=== PATIENT | male | born 1950 | race Caucasian/White ===

== ENCOUNTER 2018-10-15 | Inpatient (IN) | payer MEDICARE, OTHER ==
[~2018-10-15] VITALS: Ht 182.9 cm; Wt 103.4 kg
[2018-10-15 01:41] LABS: *BILIRUBIN,URIN NEGATIVE (NEGATIVE); *CLARITY,URINE CLOUDY (CLEAR); *COLOR,URINE YELLOW (YELLOW); *KETONES,URINE NEGATIVE (NEGATIVE); *UROBILINOGEN,URINE 0.2 E.U./dl (NORMAL); LEUKOCYTE ESTERASE ,URINE 1+ (NEGATIVE); NITRITE, URINE NEGATIVE (NEGATIVE); UGLUCOSE 2+ (NEGATIVE)
[2018-10-15 01:44] LABS: *BLOOD, URINE TRACE (NEGATIVE)
[2018-10-15 01:48] LABS: BACTERIA,URINE FEW /HPF (NONE SEEN); SQUAMOUS EPITHELIAL CELL,UR FEW /HPF (NONE SEEN); WBC,URINE 50-80 /HPF (0-3)
[2018-10-15] MEDS ORDERED: CEphaleXIN 500 MG CAPSULE PO ONE (02:15)
[2018-10-15] MEDS ORDERED: ASPI81TA31 PO (02:17)
[2018-10-15] MEDS ORDERED: LISI-607 PO (02:17)
[2018-10-15] MEDS ORDERED: EZET10TA13 PO (02:17)
[2018-10-15] MEDS ORDERED: LEVO100T10 PO (02:17)
[2018-10-15] MEDS ORDERED: SENN-18 PO (02:17)
[2018-10-15] MEDS ORDERED: OLAN10TA23 PO (02:17)
[2018-10-15] MEDS ORDERED: SERT100T PO (02:17)
[2018-10-15] MEDS ORDERED: CHOL10002 PO (02:17)
[2018-10-15] MEDS ORDERED: FERR240T9 PO (02:17)
[2018-10-15] MEDS ORDERED: METF-440 PO (02:17)
[2018-10-15] MEDS ORDERED: PIOG30TA10 PO (02:17)
[2018-10-15] MEDS ORDERED: RANI150T43 PO (02:17)
[2018-10-15] MEDS ORDERED: LORA10TA7 PO (02:17)
[2018-10-15] MEDS ORDERED: ARIP30TA3 PO (02:17)
[2018-10-15] MEDS ORDERED: CEphaleXIN 500 MG CAPSULE ONE (02:25)
[2018-10-15] MEDS ORDERED: MAG HYDROX/AL HYDROX/SIMETH 30 ML LIQUID UDC PO PRN (03:15)
[2018-10-15] MEDS ORDERED: MAGNESIUM HYDROXIDE 30 ML LIQUID UDC PO PRN (03:15)
[2018-10-15] MEDS ORDERED: TEMAZEPAM 7.5 MG CAPSULE PO PRN (03:15)
[2018-10-15] MEDS ORDERED: ACETAMINOPHEN 325 MG TABLET PO PRN (03:15)
[2018-10-15 03:20] VITALS: BP 136/83
[2018-10-15 07:30] VITALS: BP 127/59
[2018-10-15] MEDS: ARIPIPRAZOLE 10 MG TABLET PO SCH (09:44)
[2018-10-15] MEDS: SERTRALINE HCL 100 MG TABLET PO SCH (09:44)
[2018-10-15] MEDS: BLOOD SUGAR DIAGNOSTIC 1 EACH STRIP VI SCH ×3 (12:15→21:16)
[2018-10-15] MEDS ORDERED: DEXTROSE 50% 50 ML DISP.SYRIN IV PRN (12:15)
[2018-10-15] MEDS: LORATADINE 10 MG TABLET PO SCH (13:43)
[2018-10-15] MEDS: PIOGLITAZONE HCL 30 MG TABLET PO SCH (13:44)
[2018-10-15] MEDS: CHOLECALCIFEROL 1,000 UNIT TABLET PO SCH (13:44)
[2018-10-15] MEDS: LISINOPRIL 5 MG TABLET PO SCH (13:44)
[2018-10-15] MEDS: EZETIMIBE 10 MG TABLET PO SCH (13:45)
[2018-10-15] MEDS: LEVOTHYROXINE SODIUM 100 MCG TABLET PO SCH (13:45)
[2018-10-15] MEDS: FERROUS GLUCONATE 324 MG TABLET PO SCH (13:46)
[2018-10-15] MEDS: ASPIRIN 81 MG TAB.CHEW PO SCH (13:47)
[2018-10-15] MEDS: METFORMIN HCL 500 MG TABLET PO SCH ×2 (13:48→17:06)
[2018-10-15 16:11] VITALS: BP 137/75
[2018-10-15] MEDS: INSULIN REGULAR, HUMAN 300 UNIT/3 ML VIAL SQ PRN ×2 (17:03→21:51)
[2018-10-15] MEDS: SENNOSIDES 1 TABLET PO SCH (17:06)
[2018-10-15] MEDS: OLANZAPINE 5 MG TABLET PO SCH (21:15)
[2018-10-15 21:43] VITALS: BP 110/56
[2018-10-15] MEDS: CEphaleXIN 250 MG CAPSULE PO SCH (21:49)
[2018-10-16] MEDS: LEVOTHYROXINE SODIUM 100 MCG TABLET PO SCH (06:40)
[2018-10-16] MEDS: BLOOD SUGAR DIAGNOSTIC 1 EACH STRIP VI SCH ×4 (06:48→20:14)
[2018-10-16 07:17] LABS: BASOPHILS % (AUTO) 0.8 % (0.0-2.0); EOSINOPHILS # (AUTO) 0.3 K/uL (0.0-0.7); EOSINOPHILS % (AUTO) 4.9 % (0.0-7.0); HEMATOCRIT 37.9 % (36.7-47.1); HEMOGLOBIN 12.7 g/dL (12.5-16.3); LYMPHOCYTES # (AUTO) 1.3 K/uL (20.0-40.0); LYMPHOCYTES % (AUTO) 24.4 % (20.5-51.5); MEAN CORPUSCULAR HEMOGLOBIN 29.8 uug (23.8-33.4); MEAN CORPUSCULAR HGB CONC 34 g/dL (32.5-36.3); MEAN CORPUSCULAR VOLUME 89.2 fL (73.0-96.2); MONOCYTES # (AUTO) 0.4 K/uL (2.0-10.0); MONOCYTES % (AUTO) 7.3 % (0.0-11.0); NEUTROPHILS # (AUTO) 3.3 K/uL (1.8-8.9); NEUTROPHILS % (AUTO) 62.6 % (38.5-71.5); PLATELET COUNT (AUTO) 198 K/uL (152-348); RED BLOOD CELL COUNT(AUTO) 4.25 MIL/uL (4.06-5.63); WHITE BLOOD COUNT (AUTO) 5.2 K/uL (3.6-10.2)
[2018-10-16 07:30] VITALS: BP 100/56
[2018-10-16 07:34] LABS: CREATININE 1.3 mg/dL (0.6-1.3); MAGNESIUM 1.4 mg/dL (1.8-2.4); PHOSPHOROUS 4.4 mg/dL (2.5-4.9); POTASSIUM 4.2 mmol/L (3.5-5.1)
[2018-10-16] MEDS: METFORMIN HCL 500 MG TABLET PO SCH ×2 (08:23→17:04)
[2018-10-16] MEDS: SENNOSIDES 1 TABLET PO SCH ×2 (08:24→17:04)
[2018-10-16] MEDS: CHOLECALCIFEROL 1,000 UNIT TABLET PO SCH (08:24)
[2018-10-16] MEDS: LORATADINE 10 MG TABLET PO SCH (08:25)
[2018-10-16] MEDS: FERROUS GLUCONATE 324 MG TABLET PO SCH (08:25)
[2018-10-16] MEDS: EZETIMIBE 10 MG TABLET PO SCH (08:25)
[2018-10-16] MEDS: ASPIRIN 81 MG TAB.CHEW PO SCH (08:25)
[2018-10-16] MEDS: ARIPIPRAZOLE 10 MG TABLET PO SCH (08:25)
[2018-10-16] MEDS: PIOGLITAZONE HCL 30 MG TABLET PO SCH (08:26)
[2018-10-16] MEDS: SERTRALINE HCL 100 MG TABLET PO SCH (08:26)
[2018-10-16] MEDS: LISINOPRIL 5 MG TABLET PO SCH (08:27)
[2018-10-16] MEDS: CEphaleXIN 250 MG CAPSULE PO SCH ×2 (08:48→20:14)
[2018-10-16] MEDS ORDERED: MAGNESIUM OXIDE 400 MG TABLET PO ONE (09:30)
[2018-10-16] MEDS: INSULIN REGULAR, HUMAN 300 UNIT/3 ML VIAL SQ PRN ×2 (11:46→16:33)
[2018-10-16 16:17] VITALS: BP 135/75
[2018-10-16] MEDS: OLANZAPINE 5 MG TABLET PO SCH (20:14)
[2018-10-16 20:51] VITALS: BP 127/71
[2018-10-17] MEDS: BLOOD SUGAR DIAGNOSTIC 1 EACH STRIP VI SCH ×4 (06:35→20:24)
[2018-10-17] MEDS: LEVOTHYROXINE SODIUM 100 MCG TABLET PO SCH (06:35)
[2018-10-17 07:30] VITALS: BP 121/69
[2018-10-17] MEDS: METFORMIN HCL 500 MG TABLET PO SCH ×2 (07:52→17:11)
[2018-10-17] MEDS: CEphaleXIN 250 MG CAPSULE PO SCH ×2 (08:12→20:08)
[2018-10-17] MEDS: ASPIRIN 81 MG TAB.CHEW PO SCH (08:13)
[2018-10-17] MEDS: CHOLECALCIFEROL 1,000 UNIT TABLET PO SCH (08:13)
[2018-10-17] MEDS: SENNOSIDES 1 TABLET PO SCH ×2 (08:13→17:11)
[2018-10-17] MEDS: LORATADINE 10 MG TABLET PO SCH (08:13)
[2018-10-17] MEDS: ARIPIPRAZOLE 10 MG TABLET PO SCH (08:13)
[2018-10-17] MEDS: SERTRALINE HCL 100 MG TABLET PO SCH (08:14)
[2018-10-17] MEDS: PIOGLITAZONE HCL 30 MG TABLET PO SCH (08:15)
[2018-10-17] MEDS: FERROUS GLUCONATE 324 MG TABLET PO SCH (08:15)
[2018-10-17] MEDS: EZETIMIBE 10 MG TABLET PO SCH (08:15)
[2018-10-17] MEDS: LISINOPRIL 5 MG TABLET PO SCH (08:16)
[2018-10-17] MEDS: INSULIN REGULAR, HUMAN 300 UNIT/3 ML VIAL SQ PRN ×3 (11:17→20:48)
[2018-10-17 15:13] VITALS: BP 136/60
[2018-10-17] MEDS: OLANZAPINE 5 MG TABLET PO SCH (20:08)
[2018-10-17 20:48] VITALS: BP 141/64
[2018-10-18] MEDS: LEVOTHYROXINE SODIUM 100 MCG TABLET PO SCH (06:32)
[2018-10-18] MEDS: BLOOD SUGAR DIAGNOSTIC 1 EACH STRIP VI SCH ×4 (06:33→20:24)
[2018-10-18 07:30] VITALS: BP 126/71
[2018-10-18] MEDS: SENNOSIDES 1 TABLET PO SCH ×2 (08:10→16:24)
[2018-10-18] MEDS: ARIPIPRAZOLE 10 MG TABLET PO SCH (08:10)
[2018-10-18] MEDS: LORATADINE 10 MG TABLET PO SCH (08:10)
[2018-10-18] MEDS: METFORMIN HCL 500 MG TABLET PO SCH ×2 (08:11→17:03)
[2018-10-18] MEDS: FERROUS GLUCONATE 324 MG TABLET PO SCH (08:11)
[2018-10-18] MEDS: PIOGLITAZONE HCL 30 MG TABLET PO SCH (08:11)
[2018-10-18] MEDS: CHOLECALCIFEROL 1,000 UNIT TABLET PO SCH (08:11)
[2018-10-18] MEDS: ASPIRIN 81 MG TAB.CHEW PO SCH (08:11)
[2018-10-18] MEDS: LISINOPRIL 5 MG TABLET PO SCH (08:12)
[2018-10-18] MEDS: SERTRALINE HCL 100 MG TABLET PO SCH (08:12)
[2018-10-18] MEDS: EZETIMIBE 10 MG TABLET PO SCH (08:12)
[2018-10-18] MEDS: CEphaleXIN 250 MG CAPSULE PO SCH ×2 (08:13→20:18)
[2018-10-18] MEDS: INSULIN REGULAR, HUMAN 300 UNIT/3 ML VIAL SQ PRN ×4 (08:18→20:25)
[2018-10-18 16:00] VITALS: BP 113/53
[2018-10-18] MEDS: OLANZAPINE 5 MG TABLET PO SCH (20:18)
[2018-10-18 20:58] VITALS: BP 111/60
[2018-10-19] MEDS: LEVOTHYROXINE SODIUM 100 MCG TABLET PO SCH (06:36)
[2018-10-19] MEDS: BLOOD SUGAR DIAGNOSTIC 1 EACH STRIP VI SCH ×4 (06:37→20:18)
[2018-10-19 07:30] VITALS: BP 127/70
[2018-10-19] MEDS: ARIPIPRAZOLE 10 MG TABLET PO SCH (08:22)
[2018-10-19] MEDS: LORATADINE 10 MG TABLET PO SCH (08:22)
[2018-10-19] MEDS: CHOLECALCIFEROL 1,000 UNIT TABLET PO SCH (08:22)
[2018-10-19] MEDS: SENNOSIDES 1 TABLET PO SCH ×2 (08:22→16:59)
[2018-10-19] MEDS: EZETIMIBE 10 MG TABLET PO SCH (08:23)
[2018-10-19] MEDS: CEphaleXIN 250 MG CAPSULE PO SCH ×2 (08:23→20:19)
[2018-10-19] MEDS: ASPIRIN 81 MG TAB.CHEW PO SCH (08:23)
[2018-10-19] MEDS: METFORMIN HCL 500 MG TABLET PO SCH ×2 (08:23→17:21)
[2018-10-19] MEDS: FERROUS GLUCONATE 324 MG TABLET PO SCH (08:23)
[2018-10-19] MEDS: PIOGLITAZONE HCL 30 MG TABLET PO SCH (08:23)
[2018-10-19] MEDS: LISINOPRIL 5 MG TABLET PO SCH (08:24)
[2018-10-19] MEDS: SERTRALINE HCL 100 MG TABLET PO SCH (08:24)
[2018-10-19] MEDS: INSULIN REGULAR, HUMAN 300 UNIT/3 ML VIAL SQ PRN ×3 (08:28→16:59)
[2018-10-19 16:00] VITALS: BP 115/65
[2018-10-19 20:05] VITALS: BP 130/80
[2018-10-19] MEDS: OLANZAPINE 5 MG TABLET PO SCH (20:19)
[2018-10-20] MEDS: LEVOTHYROXINE SODIUM 100 MCG TABLET PO SCH (06:32)
[2018-10-20] MEDS: BLOOD SUGAR DIAGNOSTIC 1 EACH STRIP VI SCH ×4 (06:35→20:41)
[2018-10-20 07:30] VITALS: BP 109/74
[2018-10-20] MEDS: METFORMIN HCL 500 MG TABLET PO SCH ×2 (08:02→17:20)
[2018-10-20] MEDS: ASPIRIN 81 MG TAB.CHEW PO SCH (08:03)
[2018-10-20] MEDS: ARIPIPRAZOLE 10 MG TABLET PO SCH (08:03)
[2018-10-20] MEDS: SENNOSIDES 1 TABLET PO SCH ×2 (08:03→17:20)
[2018-10-20] MEDS: LORATADINE 10 MG TABLET PO SCH (08:03)
[2018-10-20] MEDS: CHOLECALCIFEROL 1,000 UNIT TABLET PO SCH (08:03)
[2018-10-20] MEDS: INSULIN REGULAR, HUMAN 300 UNIT/3 ML VIAL SQ PRN ×4 (08:05→20:45)
[2018-10-20] MEDS: EZETIMIBE 10 MG TABLET PO SCH (08:08)
[2018-10-20] MEDS: CEphaleXIN 250 MG CAPSULE PO SCH ×2 (08:08→20:40)
[2018-10-20] MEDS: SERTRALINE HCL 100 MG TABLET PO SCH (08:08)
[2018-10-20] MEDS: FERROUS GLUCONATE 324 MG TABLET PO SCH (08:09)
[2018-10-20] MEDS: PIOGLITAZONE HCL 30 MG TABLET PO SCH (08:09)
[2018-10-20] MEDS: LISINOPRIL 5 MG TABLET PO SCH (09:00)
[2018-10-20 16:00] VITALS: BP 126/58
[2018-10-20 19:46] VITALS: BP 119/70
[2018-10-20] MEDS: OLANZAPINE 5 MG TABLET PO SCH (20:41)
[2018-10-21] MEDS: LEVOTHYROXINE SODIUM 100 MCG TABLET PO SCH (06:09)
[2018-10-21] MEDS: BLOOD SUGAR DIAGNOSTIC 1 EACH STRIP VI SCH ×4 (06:16→20:07)
[2018-10-21 07:30] VITALS: BP 126/70
[2018-10-21] MEDS: CEphaleXIN 250 MG CAPSULE PO SCH ×2 (08:35→20:07)
[2018-10-21] MEDS: SERTRALINE HCL 100 MG TABLET PO SCH (08:35)
[2018-10-21] MEDS: SENNOSIDES 1 TABLET PO SCH ×2 (08:35→16:32)
[2018-10-21] MEDS: EZETIMIBE 10 MG TABLET PO SCH (08:36)
[2018-10-21] MEDS: LISINOPRIL 5 MG TABLET PO SCH (08:36)
[2018-10-21] MEDS: METFORMIN HCL 500 MG TABLET PO SCH ×2 (08:36→17:06)
[2018-10-21] MEDS: ARIPIPRAZOLE 10 MG TABLET PO SCH (08:36)
[2018-10-21] MEDS: FERROUS GLUCONATE 324 MG TABLET PO SCH (08:36)
[2018-10-21] MEDS: LORATADINE 10 MG TABLET PO SCH (08:36)
[2018-10-21] MEDS: PIOGLITAZONE HCL 30 MG TABLET PO SCH (08:36)
[2018-10-21] MEDS: CHOLECALCIFEROL 1,000 UNIT TABLET PO SCH (08:36)
[2018-10-21] MEDS: ASPIRIN 81 MG TAB.CHEW PO SCH (08:36)
[2018-10-21] MEDS: INSULIN REGULAR, HUMAN 300 UNIT/3 ML VIAL SQ PRN ×4 (08:37→20:09)
[2018-10-21 16:00] VITALS: BP 112/57
[2018-10-21 19:54] VITALS: BP 123/59
[2018-10-21] MEDS: OLANZAPINE 5 MG TABLET PO SCH (20:07)
[2018-10-22] MEDS: LEVOTHYROXINE SODIUM 100 MCG TABLET PO SCH (05:53)
[2018-10-22] MEDS: BLOOD SUGAR DIAGNOSTIC 1 EACH STRIP VI SCH ×4 (05:53→20:00)
[2018-10-22 07:30] VITALS: BP 135/59
[2018-10-22] MEDS: CHOLECALCIFEROL 1,000 UNIT TABLET PO SCH (08:33)
[2018-10-22] MEDS: ASPIRIN 81 MG TAB.CHEW PO SCH (08:34)
[2018-10-22] MEDS: EZETIMIBE 10 MG TABLET PO SCH (08:34)
[2018-10-22] MEDS: ARIPIPRAZOLE 10 MG TABLET PO SCH (08:34)
[2018-10-22] MEDS: SENNOSIDES 1 TABLET PO SCH ×2 (08:34→16:32)
[2018-10-22] MEDS: METFORMIN HCL 500 MG TABLET PO SCH ×2 (08:34→17:03)
[2018-10-22] MEDS: FERROUS GLUCONATE 324 MG TABLET PO SCH (08:34)
[2018-10-22] MEDS: SERTRALINE HCL 100 MG TABLET PO SCH (08:34)
[2018-10-22] MEDS: LISINOPRIL 5 MG TABLET PO SCH (08:35)
[2018-10-22] MEDS: LORATADINE 10 MG TABLET PO SCH (08:35)
[2018-10-22] MEDS: PIOGLITAZONE HCL 30 MG TABLET PO SCH (08:35)
[2018-10-22] MEDS: INSULIN REGULAR, HUMAN 300 UNIT/3 ML VIAL SQ PRN ×2 (08:36→11:43)
[2018-10-22] MEDS ORDERED: DEXTROSE 50% 50 ML DISP.SYRIN IV PRN (16:30)
[2018-10-22] MEDS: LORAZEPAM 1 MG TABLET PO PRN (16:32)
[2018-10-22 20:00] VITALS: BP 115/60
[2018-10-22] MEDS: OLANZAPINE 5 MG TABLET PO SCH (20:00)
[2018-10-22] MEDS: INSULIN REGULAR, HUMAN 300 UNITS/3 ML VIAL SQ PRN (20:02)
[2018-10-23] MEDS: LEVOTHYROXINE SODIUM 100 MCG TABLET PO SCH (06:07)
[2018-10-23] MEDS: BLOOD SUGAR DIAGNOSTIC 1 EACH STRIP VI SCH ×4 (06:30→20:30)
[2018-10-23 07:30] VITALS: BP 118/73
[2018-10-23] MEDS: SERTRALINE HCL 100 MG TABLET PO SCH (08:15)
[2018-10-23] MEDS: ARIPIPRAZOLE 10 MG TABLET PO SCH (08:15)
[2018-10-23] MEDS: ASPIRIN 81 MG TAB.CHEW PO SCH (08:15)
[2018-10-23] MEDS: CHOLECALCIFEROL 1,000 UNIT TABLET PO SCH (08:15)
[2018-10-23] MEDS: EZETIMIBE 10 MG TABLET PO SCH (08:15)
[2018-10-23] MEDS: SENNOSIDES 1 TABLET PO SCH ×2 (08:16→17:00)
[2018-10-23] MEDS: FERROUS GLUCONATE 324 MG TABLET PO SCH (08:16)
[2018-10-23] MEDS: METFORMIN HCL 500 MG TABLET PO SCH ×2 (08:16→17:00)
[2018-10-23] MEDS: LISINOPRIL 5 MG TABLET PO SCH (08:16)
[2018-10-23] MEDS: LORATADINE 10 MG TABLET PO SCH (08:16)
[2018-10-23] MEDS: PIOGLITAZONE HCL 30 MG TABLET PO SCH (08:16)
[2018-10-23] MEDS: INSULIN REGULAR, HUMAN 300 UNIT/3 ML VIAL SQ PRN ×4 (08:18→20:34)
[2018-10-23 15:49] VITALS: BP 118/64
[2018-10-23] MEDS: LORAZEPAM 1 MG TABLET PO PRN (17:00)
[2018-10-23 20:02] VITALS: BP 132/49
[2018-10-23] MEDS: OLANZAPINE 5 MG TABLET PO SCH (20:23)
[2018-10-24] MEDS: LEVOTHYROXINE SODIUM 100 MCG TABLET PO SCH (06:10)
[2018-10-24] MEDS: BLOOD SUGAR DIAGNOSTIC 1 EACH STRIP VI SCH ×4 (06:11→21:02)
[2018-10-24 07:30] VITALS: BP 121/66
[2018-10-24] MEDS: INSULIN REGULAR, HUMAN 300 UNIT/3 ML VIAL SQ PRN ×2 (08:10→17:12)
[2018-10-24] MEDS: ARIPIPRAZOLE 10 MG TABLET PO SCH (08:17)
[2018-10-24] MEDS: METFORMIN HCL 500 MG TABLET PO SCH ×2 (08:17→17:10)
[2018-10-24] MEDS: PIOGLITAZONE HCL 30 MG TABLET PO SCH (08:17)
[2018-10-24] MEDS: SENNOSIDES 1 TABLET PO SCH ×2 (08:17→17:10)
[2018-10-24] MEDS: CHOLECALCIFEROL 1,000 UNIT TABLET PO SCH (08:18)
[2018-10-24] MEDS: FERROUS GLUCONATE 324 MG TABLET PO SCH (08:18)
[2018-10-24] MEDS: EZETIMIBE 10 MG TABLET PO SCH (08:18)
[2018-10-24] MEDS: ASPIRIN 81 MG TAB.CHEW PO SCH (08:18)
[2018-10-24] MEDS: LORATADINE 10 MG TABLET PO SCH (08:18)
[2018-10-24] MEDS: LISINOPRIL 5 MG TABLET PO SCH (08:18)
[2018-10-24] MEDS: SERTRALINE HCL 100 MG TABLET PO SCH (08:18)
[2018-10-24 15:25] VITALS: BP 109/69
[2018-10-24 20:00] VITALS: BP 108/61
[2018-10-24] MEDS: OLANZAPINE 5 MG TABLET PO SCH (21:01)
[2018-10-24] MEDS: INSULIN REGULAR, HUMAN 300 UNITS/3 ML VIAL SQ PRN (21:04)
[2018-10-25] MEDS: LEVOTHYROXINE SODIUM 100 MCG TABLET PO SCH (06:25)
[2018-10-25] MEDS: BLOOD SUGAR DIAGNOSTIC 1 EACH STRIP VI SCH (06:44)
[2018-10-25 07:30] VITALS: BP 116/67
[2018-10-25] MEDS: ASPIRIN 81 MG TAB.CHEW PO SCH (08:37)
[2018-10-25] MEDS: SENNOSIDES 1 TABLET PO SCH (08:37)
[2018-10-25] MEDS: ARIPIPRAZOLE 10 MG TABLET PO SCH (08:37)
[2018-10-25] MEDS: CHOLECALCIFEROL 1,000 UNIT TABLET PO SCH (08:37)
[2018-10-25] MEDS: LORATADINE 10 MG TABLET PO SCH (08:37)
[2018-10-25 08:38] VITALS: BP 116/67
[2018-10-25] MEDS: PIOGLITAZONE HCL 30 MG TABLET PO SCH (08:38)
[2018-10-25] MEDS: EZETIMIBE 10 MG TABLET PO SCH (08:38)
[2018-10-25] MEDS: FERROUS GLUCONATE 324 MG TABLET PO SCH (08:38)
[2018-10-25] MEDS: LISINOPRIL 5 MG TABLET PO SCH (08:38)
[2018-10-25] MEDS: SERTRALINE HCL 100 MG TABLET PO SCH (08:38)
[2018-10-25] MEDS: METFORMIN HCL 500 MG TABLET PO SCH (08:43)
[2018-10-25] MEDS: INSULIN REGULAR, HUMAN 300 UNIT/3 ML VIAL SQ PRN (08:53)
== END 2018-10-25 11:30 | disposition home health service (06) | DRG 885 ==
LOC: ER 00:04 → GPS 03:12
PROVIDERS: ADMIT Psychiatry & Neurology Psychiatry; ATTEND Nurse Practitioner Acute Care
DX: F20.0 Paranoid schizophrenia (principal); E11.65 Type 2 diabetes mellitus with hyperglycemia; G93.41 Metabolic encephalopathy; D68.59 Other primary thrombophilia; N39.0 Urinary tract infection, site not specified; E11.9 Type 2 diabetes mellitus without complications; E03.9 Hypothyroidism, unspecified; E78.5 Hyperlipidemia, unspecified; Z60.2 Problems related to living alone; E66.01 Morbid (severe) obesity due to excess calories; Z68.30 Body mass index [BMI] 30.0-30.9, adult; Z88.2 Allergy status to sulfonamides; Z88.8 Allergy status to other drugs, medicaments and biological substances; Z79.82 Long term (current) use of aspirin; Z79.84 Long term (current) use of oral hypoglycemic drugs; I10 Essential (primary) hypertension; E83.42 Hypomagnesemia
CPT/HCPCS: 36415; 71045; 83735; 84100; 85025; 87086; 93005; A4663; J1815